=== PATIENT | female | born 1955 ===

== ENCOUNTER 2020-01-01 06:00 | Outpatient (RCR) | payer MEDICARE, SELFPAY | END 2020-01-01 23:59 | disposition home or self-care (01) | LOC: GPT 06:00 | PROVIDERS: PCP Family Medicine; Referring Provider Family Medicine; Visit Provider Family Medicine | DX: M48.02 Spinal stenosis, cervical region (principal) | CPT/HCPCS: 97032; 97110; 97161; 97530 ==

== ENCOUNTER 2020-01-02 06:00 | Outpatient (RCR) | payer MEDICARE, SELFPAY | END 2020-02-01 23:59 | disposition home or self-care (01) | LOC: GPT 06:00 | PROVIDERS: PCP Family Medicine; Referring Provider Family Medicine; Visit Provider Family Medicine | DX: M48.02 Spinal stenosis, cervical region (principal) | CPT/HCPCS: 97110; 97140; G0283 ==

== ENCOUNTER 2020-02-02 06:00 | Outpatient (RCR) | payer MEDICARE, BC, SELFPAY | END 2020-03-03 23:59 | disposition home or self-care (01) | LOC: GPT 06:00 | PROVIDERS: PCP Family Medicine; Referring Provider Family Medicine; Visit Provider Family Medicine | DX: M48.02 Spinal stenosis, cervical region (principal) | CPT/HCPCS: 97032; 97110; 97140; 97164; 97530; G0283 ==

== ENCOUNTER 2020-03-04 06:00 | Outpatient (RCR) | payer MEDICARE, BC, SELFPAY | END 2020-04-02 23:59 | disposition home or self-care (01) | LOC: GPT 06:00 | PROVIDERS: PCP Family Medicine; Referring Provider Family Medicine; Visit Provider Family Medicine | DX: M48.02 Spinal stenosis, cervical region (principal) | CPT/HCPCS: 97530 ==

== ENCOUNTER 2021-10-14 06:00 | Outpatient (RCR) | payer MEDICARE, BC, SELFPAY | END 2021-10-31 23:59 | disposition home or self-care (01) | LOC: GPT 06:00 | PROVIDERS: PCP Family Medicine; Referring Provider Orthopaedic Surgery; Visit Provider Orthopaedic Surgery | DX: Z47.1 Aftercare following joint replacement surgery (principal); Z96.652 Presence of left artificial knee joint | CPT/HCPCS: 97110; 97140; 97161; G0283 ==

== ENCOUNTER 2021-11-01 06:00 | Outpatient (RCR) | payer MEDICARE, BC, SELFPAY | END 2021-12-01 23:59 | disposition home or self-care (01) | LOC: GPT 06:00 | PROVIDERS: PCP Family Medicine; Referring Provider Orthopaedic Surgery; Visit Provider Orthopaedic Surgery | DX: Z47.1 Aftercare following joint replacement surgery (principal); Z96.652 Presence of left artificial knee joint | CPT/HCPCS: 97110; G0283 ==

== ENCOUNTER 2021-12-02 06:00 | Outpatient (RCR) | payer MEDICARE, SELFPAY | END 2021-12-09 23:59 | disposition home or self-care (01) | LOC: GPT 06:00 | PROVIDERS: PCP Family Medicine; Referring Provider Orthopaedic Surgery; Visit Provider Orthopaedic Surgery | DX: M48.02 Spinal stenosis, cervical region (principal) | CPT/HCPCS: 97110; 97112; 97116; G0283 ==